=== PATIENT | female | born 1975 | race Caucasian/White ===

== ENCOUNTER 2023-11-26 13:09 | Outpatient (CLI) | payer OTHER, SELFPAY ==
--- NOTE | 2023-11-26 13:37 | ECG_ITS ---
SEE SCANNED COPY FOR INTERPRETATION AND SIGNATURE MTDD
== END 2023-11-26 13:10 | disposition home or self-care (01) ==
PROVIDERS: PCP Family Medicine; Visit Provider Orthopaedic Surgery
DX: Z01.818 Encounter for other preprocedural examination (principal); Z01.812 Encounter for preprocedural laboratory examination; Z01.811 Encounter for preprocedural respiratory examination; Z01.810 Encounter for preprocedural cardiovascular examination; M17.12 Unilateral primary osteoarthritis, left knee
CPT/HCPCS: 93005